=== PATIENT | male | born 1960 | race Caucasian/White ===

== ENCOUNTER 2021-05-26 10:27 | Outpatient (CLI) | payer BC, SELFPAY ==
--- NOTE | 2021-05-26 10:35 | CT_ITS ---
WS: [id number] CT CHEST WITH INTRAVENOUS CONTRAST HISTORY: LUNG NODULE TECHNIQUE: Contiguous 5 mm axial imaging performed on the thorax. Coronal and sagittal reformats are submitted. All CT scans at [facility] use at least one of these dose optimization techniques: automated exposure control; mA and/or kV adjustment per patient size (includes targeted exams where dose is matched to clinical indication); or iterative reconstruction. CONTRAST: Omnipaque 300; 95 mL IV. DLP: 779.09 mGycm COMPARISON: Chest radiograph 05/11/2021 Lungs and central airway: Bilateral peripheral and predominantly lower lobe groundglass irregular opa cifications. Moderate extent of the groundglass attenuation. There is a benign granuloma in the RIGHT middle lobe. Pleura: Normal. No pleural effusion. Heart and pericardium: Normal size heart with no pericardial effusion. Mediastinum and oj: Bilateral mediastinal lymph nodes. LEFT hilar lymph node is 10 mm. RIGHT lower lobe interlobar lymph node is 12 mm. Vessels: Mild atherosclerosis aorta. Normal size pulmonary artery. Chest wall and lower neck: No soft tissue masses. Upper abdomen: Small hiatal hernia. No adrenal mass. Mild hepatic steatosis. Osseous structures: Moderate increase in thoracic kyphosis centered in the midthoracic spine. Mild an terior wedging of T8 and T9. CT/CT chest w con* [id number] IMPRESSION: 1. Bilateral peripheral groundglass opacifications. Most consistent with pneum onitis. Correlate with Covid 19 status. 2. Bilateral mediastinal lymph nodes probably reactive with the largest measur ing 12 mm. 3. Small hiatal hernia.
[2021-05-26] MEDS: iohexol 300 mg/mL 100 mL Btl IV (10:52)
== END 2021-05-26 10:28 | disposition home or self-care (01) ==
PROVIDERS: Visit Provider Physician Assistant
DX: R91.1 Solitary pulmonary nodule (principal); K44.9 Diaphragmatic hernia without obstruction or gangrene
CPT/HCPCS: 71260; Q9967

== ENCOUNTER 2025-04-20 10:53 | Outpatient (CLI) | payer OTHER, SELFPAY ==
--- NOTE | 2025-04-20 11:12 | XR_ITS ---
WS: [id number] XR hip LT 2-3V wo/w pel* [id number] REASON FOR EXAM: fall left hip pain FINDINGS: No fracture or focal bone lesion. Moderate narrowing of the posterior inferior joint space with mild subchondral sclerosis and osteophytosis. Anterior superior joint space is intact and relatively well preserved. There is moderate subchondral sclerosis and prominent osteophytosis superiorly and anteriorly. There is mild osteophytosis of the femoral head. XR/XR hip LT 2-3V wo/w pel* [id number] IMPRESSION: Mild to moderate osteoarthritis of the left hip.
== END 2025-04-20 10:54 | disposition home or self-care (01) ==
PROVIDERS: Visit Provider Emergency Medicine
DX: M25.752 Osteophyte, left hip (principal); S79.912A Unspecified injury of left hip, initial encounter; W19.XXXA Unspecified fall, initial encounter; M16.12 Unilateral primary osteoarthritis, left hip
CPT/HCPCS: 73502

== ENCOUNTER → 2025-05-05 08:48 | Outpatient (BNVA) | payer OTHER, SELFPAY | PROVIDERS: PCP Family Medicine; Visit Provider Family Medicine | DX: Z13.6 Encounter for screening for cardiovascular disorders (principal); N53.19 Other ejaculatory dysfunction; R35.1 Nocturia | CPT/HCPCS: 80053; 80061; 84153; 84403; 84443; 85025 ==

== ENCOUNTER 2025-06-10 05:45 | Day surgery (SDC) | payer OTHER, SELFPAY ==
[2025-06-10 05:59] VITALS: BP 119/86; PULSE 73; RESP 18; TEMP 36.3; O2SAT 96; BMI 23.6
--- NOTE | 2025-06-10 06:00 | P.HPUD_ITS ---
Surgery/Procedure H&P Update DATE OF PROCEDURE: June 10, 2025 DATE H&P PERFORMED: 05/19/25 H&P UPDATE INFORMATION: I have reviewed H&P completed within last 30 days, I have examined patient prior to procedure, No changes to prior documentation, H&P is in [facility] EMR on date indicated and Risks and benefits of the procedure reviewed PLANNED PROCEDURE: Operation Date: 06/10/25 07:00 Proposed Procedures p Colonoscopy [id number] [id number] Z12.11(Not Applicable) - Abhay Jesus MD
--- NOTE | 2025-06-10 06:57 | ANES.PREANE2 ---
Pre-Anesthetic Assessment Height/Weight: Height 1.78 m Weight 74.843 kg Temp Pulse Resp BP Pulse Ox O2 Del Method 97.4 F L 73 18 119/86 96 Room Air 06/10/25 05:59 06/10/25 05:59 06/10/25 05:59 06/10/25 05:59 06/10/25 05:59 06/10/25 05:59 Preop Diagnosis: screening Operation Date: 06/10/25 07:00 Proposed Procedures p Colonoscopy [id number] [id number] Z12.11(Not Applicable) - Abhay Jesus MD Familial anesthetic complications: none Was Beta Koby taken within 24 hours: N/A Was Clonidine taken within 24 hours: N/A Last intake: Intake Last Liquid Date 06/09/25 Last Liquid Time 18:00 Last Solid Date 06/09/25 Last Solid Time 14:00 Social No alcohol and No tobacco Exam alert and oriented x 3 Airway Submandibular: within normal limits Cervical ROM: within normal limits Mallampati: Class II Dentition: full History/ROS No significant complaints Anesthetic Plan ASA status: 1 Anesthesia: Anesthesia Evaluation and MAC Risk of > 500 ml blood loss (7ml/kg in children): No Medications/Allergies Home Medications ?Medication ?Instructions ?Recorded ?Confirmed ?Last Taken ?Type No Known Home Medications 05/19/25 06/08/25 Unknown History Allergies Allergy/AdvReac Type Severity Reaction Status Date / Time No Known Allergies Allergy Verified 06/10/25 06:03 Current Medications Generic Name Dose Route Start Last Admin Trade Name Freq PRN Reason Stop Dose Admin Sodium Chloride 1,000 mls @ 15 mls/hr 06/10/25 05:53 06/10/25 06:17 Sodium Chloride 0.9% IV 06/11/25 05:52 15 mls/hr .Q24H PRN Administration COLONOSCOPY FLUIDS PFSH Anesthesia Surgical History No pertinent past surgical history Family History Grandfather , No Family health history to report per patient. No problems noted. Social History Smoking and tobacco/nicotine status: never used tobacco/nicotine
[2025-06-10 07:20] VITALS: BP 110/63; PULSE 53; RESP 16; TEMP 36.3; O2SAT 98
--- NOTE | 2025-06-10 07:22 | ANE.PACU2 ---
Inpatient post-anesthesia follow up: Airway intact: Yes Vital signs: Temperature 97.4 F Pulse Rate 53 Respiratory Rate 16 Blood Pressure 110/63 Pulse Oximetry 98 Oxygen Delivery Me thod Room Air Oxygen Flow Rate Fraction of Inspir ed Oxygen Hydration adequate: Yes Nausea and vomiting: No Pain level: 1 Mental status: Baseline
[2025-06-10 07:46] VITALS: BP 95/64; PULSE 65; RESP 18; O2SAT 99
== END 2025-06-10 07:57 | disposition home or self-care (01) ==
PROVIDERS: PCP Family Medicine; Visit Provider Surgery
PROC: 0DJD8ZZ Inspection of Lower Intestinal Tract, Via Natural or Artificial Opening Endoscopic (ICD-10-PCS; CPT 45378; principal; 2025-06-10 07:00)
DX: Z12.11 Encounter for screening for malignant neoplasm of colon (principal); K64.8 Other hemorrhoids
CPT/HCPCS: 45378; J2371; J2704; J7030; J9999